=== PATIENT | female | born 1965 | race Caucasian/White ===

== ENCOUNTER 2017-02-18 18:33 | Emergency (ER) | payer MEDICAID ==
[~2017-02-18 18:33] MED LIST: ANTIVERT12.5 MG PO; IBUPROFEN400 MG PO; OMEGA 31000 MG PO
[2017-02-18 20:04] LABS: CALCIUM 8.9 mg/dL (8.5-10.1); CARBON DIOXIDE 32.1 mmol/L (21-32); CHLORIDE SERUM 103 mmol/L (98-107); CREATININE SERUM 0.6 mg/dL (0.6-1.0); GFR1 > 60 mL/min; GLUCOSE SERUM 111 mg/dL (74-106); POTASSIUM SERUM 4.4 mmol/L (3.5-5.1); SODIUM SERUM 138 mmol/L (136-145)
[2017-02-18 20:05] LABS: BASOPHIL % 0.4 % (0-2); PLATELET COUNT 276 x10^3mcL (130-400); RED CELL DISTRIBUTION WIDTH 12.7 % (11.5-14.5)
[2017-02-18 20:08] LABS: ALBUMIN 3.5 g/dL (3.4-5.0); ALKALINE PHOSPHATASE 111 U/L (46-116); ALT/SGPT 27 U/L (14-59); AMYLASE 57 U/L (25-115); AST/SGOT 10 U/L (15-37); BILIRUBIN TOTAL 0.3 mg/dL (0.20-1.00); LIPASE 225 IU/L (73-393); TOTAL PROTEIN, SERUM 7.5 g/dL (6.4-8.2)
[2017-02-18 22:08] VITALS: BP 129/82
== END 2017-02-18 22:08 | disposition home or self-care (01) ==
LOC: ED 18:33
PROVIDERS: Emergency Medicine
DX: R10.13 Epigastric pain (principal)
CPT/HCPCS: 83880; J1885; Q0092

== ENCOUNTER 2017-08-19 17:14 | Emergency (ER) | payer MEDICAID ==
[2017-08-20] VITALS: BP 118/64
== END 2017-08-20 | disposition home or self-care (01) ==
LOC: ED 17:14
DX: R51 Headache (principal); H53.8 Other visual disturbances
CPT/HCPCS: J1200; J2765

== ENCOUNTER 2019-06-22 07:17 | Emergency (ER) | payer MEDICAID ==
[~2019-06-22] VITALS: Ht 149.9 cm; Wt 84.9 kg
[2019-06-22 07:23] VITALS: Ht 149.9 cm; Wt 84.9 kg
[2019-06-22 09:22] LABS: BASOPHIL % 0.3 % (0-2); PLATELET COUNT 274 x10^3mcL (130-400); RED CELL DISTRIBUTION WIDTH 13.4 % (11.5-14.5)
[2019-06-22 09:46] LABS: CALCIUM 8.2 mg/dL (8.5-10.1); CARBON DIOXIDE 28.4 mmol/L (21-32); CHLORIDE SERUM 101 mmol/L (98-107); CREATININE SERUM 0.6 mg/dL (0.6-1.0); GFR1 > 60 mL/min; GLUCOSE SERUM 149 mg/dL (74-106); POTASSIUM SERUM 3.8 mmol/L (3.5-5.1); SODIUM SERUM 138 mmol/L (136-145)
[2019-06-22 09:51] LABS: ALKALINE PHOSPHATASE 98 U/L (46-116); ALT/SGPT 34 U/L (14-59); AST/SGOT 10 U/L (15-37); BILIRUBIN TOTAL 0.33 mg/dL (0.20-1.00); LIPASE 189 IU/L (73-393); TOTAL PROTEIN, SERUM 7.1 g/dL (6.4-8.2)
[2019-06-22] MEDS ORDERED: [UNRECOGNIZED DRUG - OTHER] (10:01)
[2019-06-22] MEDS ORDERED: GLUCOTROL5 MG PO (10:01)
[2019-06-22 10:38] VITALS: BP 131/62
== END 2019-06-22 10:38 | disposition home or self-care (01) ==
LOC: ED 07:17
PROVIDERS: Emergency Medicine
DX: K29.70 Gastritis, unspecified, without bleeding (principal); E78.00 Pure hypercholesterolemia, unspecified
CPT/HCPCS: 36415; Q0092; Q0162

== ENCOUNTER 2020-03-07 12:34 | Emergency (ER) | payer MEDICAID ==
[~2020-03-07] VITALS: Ht 152.4 cm; Wt 79.4 kg
[~2020-03-07 12:34] MED LIST changes: +GLUCOTROL5 MG PO; +[UNRECOGNIZED DRUG - OTHER]
[2020-03-07 12:50] VITALS: Ht 152.4 cm; Wt 79.4 kg
[2020-03-07 13:38] LABS: BASOPHIL % 0.4 % (0-2); PLATELET COUNT 275 x10^3mcL (130-400); RED CELL DISTRIBUTION WIDTH 13.7 % (11.5-14.5)
[2020-03-07 14:02] LABS: CALCIUM 8.7 mg/dL (8.5-10.1); CARBON DIOXIDE 28.2 mmol/L (21-32); CHLORIDE SERUM 99 mmol/L (98-107); CREATININE SERUM 0.6 mg/dL (0.6-1.0); GFR1 > 60 mL/min; GLUCOSE SERUM 246 mg/dL (74-106); POTASSIUM SERUM 3.4 mmol/L (3.5-5.1); SODIUM SERUM 134 mmol/L (136-145)
[2020-03-07 14:05] LABS: ALKALINE PHOSPHATASE 147 U/L (46-116); ALT/SGPT 38 U/L (14-59); AST/SGOT 9 U/L (15-37); BILIRUBIN TOTAL 0.35 mg/dL (0.20-1.00); HDL CHOLESTEROL 49 mg/dL (40-60); TOTAL PROTEIN, SERUM 7.4 g/dL (6.4-8.2); URIC ACID 4.4 mg/dL (2.6-6.0)
[2020-03-07 14:06] LABS: ALBUMIN 3.2 g/dL (3.4-5.0); CHOLESTEROL 255 mg/dL (<200)
[2020-03-07 15:03] LABS: PHOSPHOROUS 3.4 mg/dL (2.5-4.9)
[2020-03-07 15:18] VITALS: BP 135/74
== END 2020-03-07 15:18 | disposition home or self-care (01) ==
LOC: ED 12:34
PROVIDERS: Emergency Medicine
DX: G44.209 Tension-type headache, unspecified, not intractable (principal); R07.89 Other chest pain; E78.00 Pure hypercholesterolemia, unspecified
CPT/HCPCS: J1885; Q0092